=== PATIENT | female | born 1975 | race Caucasian/White ===

== ENCOUNTER 2017-02-25 09:37 | Emergency (ER) | payer BC ==
--- NOTE | 2017-02-25 09:54 | EDM.PDOC ---
ED HPI LOWER BACK PAIN/INJURY - General Chief Complaint: Back Pain or Injury Stated Complaint: BACK Time Seen by Provider: 02/25/17 09:40 Source of Information: Reports: Patient History Limitations: Reports: No limitations - History of Present Illness INITIAL COMMENTS - FREE TEXT/NARRATIVE: History of present illness: [] Patient was bending down at work and felt a sudden low back spasm. Patient has had spasms in the past with no specific injuries. He does not have any radiating pain, numbness, tingling or incontinence. Review of systems: As per history of present illness and below otherwise all systems reviewed and negative. Past medical history: As per history of present illness and as reviewed below otherwise noncontributory. Surgical history: As per history of present illness and as reviewed below otherwise noncontributory. Social history: No reported history of drug or alcohol abuse. Family history: As per history of present illness and as reviewed below otherwise noncontributory. Physical exam: General: Well developed, well nourished in NAD HEENT: Atraumatic, normocephalic, pupils reactive, negative for conjunctival pallor or scleral icterus, mucous membranes moist, throat clear, neck supple, nontender, trachea midline. Lungs: Clear to auscultation, breath sounds equal bilaterally, chest nontender. Heart: S1S2, regular, negative for clicks, rubs, or JVD. Abdomen: Soft, nondistended, nontender. Negative for masses or hepatosplenomegaly. Negative for costovertebral tenderness. Pelvis: Stable nontender. Genitourinary: Deferred. Rectal: Deferred. Extremities: Atraumatic, negative for cords or calf pain. Neurovascular unremarkable. Neuro: Awake, alert, oriented. Cranial nerves II through XII unremarkable. Cerebellum unremarkable. Motor and sensory unremarkable throughout. Exam nonfocal. Diagnostics: [] Therapeutics: [] Toradol IM Impression: [] Lumbar spasm Plan: [] Tramadol Flexeril for pain and spasm ice to back Definitive disposition and diagnosis as appropriate pending reevaluation and review of above. - Related Data Allergies/ADRs: Allergies Allergy/AdvReac Type Severity Reaction Status Date / Time No Known Allergies Allergy Verified 02/25/17 09:41 Home Meds: Home Meds Levothyroxine Sodium [Synthroid] 150 mcg PO DAILY 09/08/16 [History] Cyclobenzaprine [Flexeril] 10 mg PO BID PRN #12 tablet 02/25/17 [Rx] traMADol [Ultram] 50 mg PO Q6H PRN #12 tablet 02/25/17 [Rx] Past Medical History - Past Health History Medical/Surgical History: Denies Medical/Surgical History HEENT History: Reports: Hard of hearing, Impaired vision Other HEENT History: wears glasses, jennyfer hearing aids Cardiovascular History: Reports: Other (see below) Other Cardiovascular History: slight murmur Respiratory History: Reports: None Gastrointestinal History: Reports: None Genitourinary History: Reports: None 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 Musculoskeletal History: Reports: None Neurological History: Reports: None Psychiatric History: Reports: None Endocrine/Metabolic History: Reports: Hypothyroidism Hematologic History: Reports: None Immunologic History: Reports: None Oncologic (Cancer) History: Reports: None Dermatologic History: Reports: None - Past Surgical History Head Surgeries/Procedures: Reports: None HEENT Surgical History: Reports: Tonsillectomy Cardiovascular Surgical History: Reports: None GI Surgical History: Reports: Colonoscopy, EGD Female Surgical History: Reports: Hysterectomy Social & Family History - Family History Family Medical History: Noncontributory - Tobacco Use Smoking Status *Q: Never Smoker Second Hand Smoke Exposure: No - Caffeine Use Caffeine Use: Reports: Coffee, Energy drinks, Soda, Tea Caffeine Use Comment: 3-4x a week - Recreational Drug Use Recreational Drug Use: No - Living Situation & Occupation Living situation: Reports: , with family (Children) Occupation: employed (sales enablement manager.) ED ROS GENERAL - Review of Systems Review Of Systems: See Below (See history of present illness) ED EXAM,LOWER BACK PAIN/INJURY - Physical Exam Exam: See Below (See history of present illness) Course - Vital Signs Last Recorded V/S: Last Vital Signs Temp 36.4 C 02/25/17 09:42 Pulse 75 02/25/17 09:42 Resp 18 02/25/17 09:42 BP 140/81 02/25/17 09:42 Pulse Ox 100 02/25/17 09:42 - Orders/Labs/Meds Meds: Medications Discontinued Medications Generic Name Dose Route Start Last Admin Trade Name Freq PRN Reason Stop Dose Admin Ketorolac Tromethamine 60 mg 02/25/17 09:56 02/25/17 10:01 Toradol IM 02/25/17 09:57 60 mg ONETIME ONE Administration Departure - Departure Time of Disposition: 10:18 Disposition: Home, Self-Care 01 Condition: good Clinical Impression: Back muscle spasm Prescriptions: Cyclobenzaprine [Flexeril] 10 mg PO BID PRN #12 tablet PRN Reason: Spasms traMADol [Ultram] 50 mg PO Q6H PRN #12 tablet PRN Reason: Pain Referrals: Usman Wood MD [Primary Care Provider] - Forms: ED Department Discharge Additional Instructions: The following information is given to patients seen in the emergency department who are being discharged to home. This information is to outline your options for follow-up care. We provide all patients seen in our emergency department with a follow-up referral. The need for follow-up, as well as the timing and circumstances, are variable depending upon the specifics of your emergency department visit. If you don't have a primary care physician on staff, we will provide you with a referral. We always advise you to contact your personal physician following an emergency department visit to inform them of the circumstance of the visit and for follow-up with them and/or the need for any referrals to a consulting specialist. The emergency department will also refer you to a specialist when appropriate. This referral assures that you have the opportunity for follow-up care with a specialist. All of these measure are taken in an effort to provide you with optimal care, which includes your follow-up. Under all circumstances we always encourage you to contact your private physician who remains a resource for coordinating your care. When calling for follow-up care, please make the office aware that this follow-up is from your recent emergency room visit. If for any reason you are refused follow-up, please contact the [facility] Emergency Department at and asked to speak to the emergency department charge nurse. Tramadol Flexeril [facility] [address] [place] [id number]
[2017-02-25] MEDS ORDERED: Ketorolac 60 MG/2 ML SDV IM ONE (09:56)
[2017-02-25 10:29] VITALS: BP 119/75
== END 2017-02-25 10:29 | disposition home or self-care (01) ==
LOC: MW.ED 09:37
DX: M62.830 Muscle spasm of back (principal); E03.9 Hypothyroidism, unspecified; Z90.710 Acquired absence of both cervix and uterus; Z98.890 Other specified postprocedural states; Z79.899 Other long term (current) drug therapy
CPT/HCPCS: 96372; 99283; J1885

== ENCOUNTER 2020-08-06 09:35 | Emergency (ER) | payer OTHER ==
[2020-08-06 09:46] VITALS: BP 133/60; PULSE 77
[2020-08-06] MEDS ORDERED: Diazepam 2 MG Tab PO ONE (09:56)
[2020-08-06] MEDS ORDERED: Dexamethasone 4 MG Tab PO ONE (09:56)
--- NOTE | 2020-08-06 10:04 | EDM.PDOC ---
ED HPI GENERAL MEDICAL PROBLEM - General Chief Complaint: Back Pain or Injury Stated Complaint: BACK INJURY Time Seen by Provider: 08/06/20 09:46 - History of Present Illness INITIAL COMMENTS - FREE TEXT/NARRATIVE: History of present illness: Patient presents with low back pain that is bilateral lumbar radiating into her buttocks and thighs she states she hurt it yesterday while making a bed no heavy lifting no falls no trauma she has had prior episodes of back pain in the past usually this is relieved with a steroid injection into her back. She currently takes no medications other than Tylenol for pain she denies any trouble with urination no fever no chills movement makes it worse being still makes it better. Review of systems: As per history of present illness and below otherwise all systems reviewed and negative. Past medical history: As per history of present illness and as reviewed below otherwise noncontributory. Surgical history: As per history of present illness and as reviewed below otherwise nonco ntributory. Social history: No reported history of drug or alcohol abuse. Family history: As per history of present illness and as reviewed below otherwise noncontributory. Physical exam: HEENT: Atraumatic, normocephalic, pupils reactive, negative for conjunctival pallor or scleral icterus, mucous membranes moist, throat clear, neck supple, nontender, trachea midline. Lungs: Clear to auscultation, breath sounds equal bilaterally, chest nontender. Heart: S1S2, regular, negative for clicks, rubs, or JVD. Abdomen: Soft, nondistended, nontender. Negative for masses or hepatosplenomegaly. Negative for costovertebral tenderness. Pelvis: Stable nontender. Genitourinary: Deferred. Rectal: Deferred. Extremities: Atraumatic, negative for cords or calf pain. Neurovascular unremarkable. Neuro: Awake, alert, oriented. Cranial nerves II through XII unremarkable. Cerebellum unremarkable. Motor and sensory unremarkable throughout. Exam nonfocal. No saddle anesthesia great toe strength is 5 out of 5 bilaterally Back: There is no midline tenderness there is bilateral lumbar spasm in the paraspinal musculature. Diagnostics: [] Therapeutics: [] Impression: Back pain [] Plan: Patient will get a dose of Decadron and some Valium in the ED should be discharged home on gabapentin prednisone and Flexeril she is to follow-up with her primary care doctor soon as possible. [] Definitive disposition and diagnosis as appropriate pending reevaluation and review of above. lower back Pain Score (Numeric/FACES): 10 - Related Data Allergies Allergy/AdvReac Type Severity Reaction Status Date / Time No Known Allergies Allergy Verified 08/06/20 09:41 Home Meds: Home Meds Levothyroxine Sodium [Synthroid] 175 mcg PO DAILY 09/08/16 [History] Diclofenac Sodium [Voltaren] 1 applic TOP ASDIRECTED PRN 08/03/20 [History] Metoprolol Tartrate 50 mg PO DAILY 08/03/20 [History] Cyclobenzaprine [Flexeril] 10 mg PO TID #30 tab 08/06/20 [Rx] Gabapentin [Neurontin] 300 mg PO TID #90 cap 08/06/20 [Rx] predniSONE 60 mg PO WITHBREAKFAST 5 Days #15 tab 08/06/20 [Rx] Past Medical History - Past Health History Medical/Surgical History: Denies Medical/Surgical History HEENT History: Reports: Hard of Hearing, Impaired Vision Other HEENT History: wears glasses, jennyfer hearing aids Cardiovascular History: Reports: Hypertension, Other (See Below) Other Cardiovascular History: slight murmur Respiratory History: Reports: None Gastrointestinal History: Reports: None, Cholelithiasis Genitourinary History: Reports: None 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 Musculoskeletal History: Reports: Back Pain, Chronic, Neck Pain, Chronic Other Musculoskeletal History: states has chronic neck and back pain; states goes to chiropractor and also had a steroid injection at [facility] recently Neurological History: Reports: None Psychiatric History: Reports: None Endocrine/Metabolic History: Reports: Hypothyroidism, Obesity/BMI 30+ Hematologic History: Reports: None Immunologic History: Reports: None Oncologic (Cancer) History: Reports: None Dermatologic History: Reports: None - Infectious Disease History Infectious Disease History: Reports: Chicken Pox - Past Surgical History Head Surgeries/Procedures: Reports: None HEENT Surgical History: Reports: Tonsillectomy Cardiovascular Surgical History: Reports: None GI Surgical History: Reports: Colonoscopy, EGD Female Surgical History: Reports: Hysterectomy Other Female Surgeries/Procedures: states had a hysterectomy with bladder repair Social & Family History - Family History Family Medical History: Noncontributory - Tobacco Use Smoking Status *Q: Never Smoker - Caffeine Use Caffeine Use: Reports: Coffee Caffeine Use Comment: 3-4x a week - Recreational Drug Use Recreational Drug Use: No - Living Situation & Occupation Living situation: Reports: , with Family Occupation: Employed ED ROS GENERAL - Review of Systems Review Of Systems: See Below ED EXAM, GENERAL - Physical Exam Exam: See Below Course - Vital Signs Last Recorded V/S: Last Vital Signs Temp 36.3 C 08/06/20 09:41 Pulse 77 08/06/20 09:41 Resp 24 H 08/06/20 09:41 BP 133/60 08/06/20 09:41 Pulse Ox 100 08/06/20 09:41 - Orders/Labs/Meds Meds: Medications Discontinued Medications Generic Name Dose Route Start Last Admin Trade Name Mariia PRN Reason Stop Dose Admin Dexamethasone 8 mg 08/06/20 09:56 Dexamethasone PO 08/06/20 09:57 ONETIME ONE Diazepam 5 mg 08/06/20 09:56 Valium PO 08/06/20 09:57 ONETIME ONE Departure - Departure Time of Disposition: 10:03 Disposition: Home, Self-Care 01 Condition: Good Clinical Impression: Back pain - Discharge Information *PRESCRIPTION DRUG MONITORING PROGRAM REVIEWED*: Not Applicable *COPY OF PRESCRIPTION DRUG MONITORING REPORT IN PATIENT DANY: Not Applicable Prescriptions: Cyclobenzaprine [Flexeril] 10 mg PO TID #30 tab Gabapentin [Neurontin] 300 mg PO TID #90 cap predniSONE 60 mg PO WITHBREAKFAST 5 Days #15 tab Instructions: Acute Back Pain, Adult Referrals: Usman Wood MD [Primary Care Provider] - Additional Instructions: The following information is given to patients seen in the emergency department who are being discharged to home. This information is to outline your options for follow-up care. We provide all patients seen in our emergency department with a follow-up referral. The need for follow-up, as well as the timing and circumstances, are variable depending upon the specifics of your emergency department visit. If you don't have a primary care physician on staff, we will provide you with a referral. We always advise you to contact your personal physician following an emergency department visit to inform them of the circumstance of the visit and for follow-up with them and/or the need for any referrals to a consulting specialist. The emergency department will also refer you to a specialist when appropriate. This referral assures that you have the opportunity for follow-up care with a specialist. All of these measure are taken in an effort to provide you with optimal care, which includes your follow-up. Under all circumstances we always encourage you to contact your private physician who remains a resource for coordinating your care. When calling for follow-up care, please make the office aware that this follow-up is from your recent emergency room visit. If for any reason you are refused follow-up, please contact the [facility] Emergency Department at and asked to speak to the emergency department charge nurse. Sepsis Event Note (ED) - Evaluation Sepsis Screening Result: No Definite Risk - Focused Exam Vital Signs: Vital Signs Temp Pulse Resp BP Pulse Ox 08/06/20 09:41 36.3 C 77 24 H 133/60 100
== END 2020-08-06 10:50 | disposition home or self-care (01) ==
LOC: MW.ED 09:35
DX: M54.5 Low back pain (principal); I10 Essential (primary) hypertension; E03.9 Hypothyroidism, unspecified; E66.9 Obesity, unspecified; Z68.34 Body mass index [BMI] 34.0-34.9, adult; Z79.899 Other long term (current) drug therapy
CPT/HCPCS: 99283; A9270; J8540; 99282

== ENCOUNTER 2020-08-09 09:40 | Day surgery (SDC) | payer OTHER ==
[~2020-08-09 09:40] MED LIST: Lactated Ringers 1,000 ML IV SCH; Sodium Chloride 0.9% 10 ML SDV IV PRN; Sodium Chloride 0.9% 10 ML Syringe FLUSH PRN; Sodium Chloride 0.9% 2.5 ML Syringe FLUSH PRN; ceFAZolin 2 GM in Premix Bag 1 BAG IV ONE
--- NOTE | 2020-08-09 10:24 | PCM.PREANE ---
Preanesthetic Assessment - Anesthesia/Transfusion/Family Hx Anesthesia History: Prior Anesthesia Without Reaction Family History of Anesthesia Reaction: No Transfusion History: No Prior Transfusion(s) - Review of Systems General: No Symptoms Pulmonary: No Symptoms Cardiovascular: No Symptoms Gastrointestinal: No Symptoms Neurological: No Symptoms Other: Reports: None - Physical Assessment NPO Status Date: 08/08/20 Height: 5 ft 5 in Weight: 95.254 kg ASA Class: 2 Mental Status: Alert & Oriented x3 Airway Class: Mallampati = 2 Dentition: Reports: Normal Dentition ROM/Head Extension: Full Lungs: Clear to Auscultation, Normal Respiratory Effort Cardiovascular: Regular Rate, Regular Rhythm - Allergies Allergies/Adverse Reactions: Allergies Allergy/AdvReac Type Severity Reaction Status Date / Time No Known Allergies Allergy Verified 08/06/20 09:41 - Blood Blood Available: No - Anesthesia Plan Pre-Op Medication Ordered: None - Acknowledgements Anesthesia Type Planned: General Anesthesia Pt an Appropriate Candidate for the Planned Anesthesia: Yes Alternatives and Risks of Anesthesia Discussed w Pt/Guardian: Yes Pt/Guardian Understands and Agrees with Anesthesia Plan: Yes Additional Comments: pmh: on metopralol for htn and anxiety, gerd, thyroid replacement PLAN: GET PreAnesthesia Questionnaire - Past Health History Medical/Surgical History: Denies Medical/Surgical History HEENT History: Reports: Hard of Hearing, Impaired Vision Other HEENT History: wears glasses, jennyfer hearing aids Cardiovascular History: Reports: Hypertension, Other (See Below) Other Cardiovascular History: slight murmur Respiratory History: Reports: None Gastrointestinal History: Reports: None, Cholelithiasis Genitourinary History: Reports: None 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 Musculoskeletal History: Reports: Back Pain, Chronic, Neck Pain, Chronic Other Musculoskeletal History: states has chronic neck and back pain; states goes to chiropractor and also had a steroid injection at [facility] recently Neurological History: Reports: None Psychiatric History: Reports: None Endocrine/Metabolic History: Reports: Hypothyroidism, Obesity/BMI 30+ Hematologic History: Reports: None Immunologic History: Reports: None Oncologic (Cancer) History: Reports: None Dermatologic History: Reports: None - Infectious Disease History Infectious Disease History: Reports: Chicken Pox - Past Surgical History Head Surgeries/Procedures: Reports: None HEENT Surgical History: Reports: Tonsillectomy Cardiovascular Surgical History: Reports: None GI Surgical History: Reports: Colonoscopy, EGD Female Surgical History: Reports: Hysterectomy Other Female Surgeries/Procedures: states had a hysterectomy with bladder repair - SUBSTANCE USE Smoking Status *Q: Never Smoker - HOME MEDS Home Medications: Home Meds Levothyroxine Sodium [Synthroid] 175 mcg PO DAILY 09/08/16 [History] Diclofenac Sodium [Voltaren] 1 applic TOP ASDIRECTED PRN 08/03/20 [History] Metoprolol Tartrate 50 mg PO DAILY 08/03/20 [History] Cyclobenzaprine [Flexeril] 10 mg PO TID #30 tab 08/06/20 [Rx] Gabapentin [Neurontin] 300 mg PO TID #90 cap 08/06/20 [Rx] predniSONE 60 mg PO WITHBREAKFAST 5 Days #15 tab 08/06/20 [Rx] - CURRENT (IN HOUSE) MEDS Current Meds: Current Medications Lactated Ringer's (Ringers, Lactated) 1,000 mls @ 125 mls/hr IV ASDIRECTED MERI Sodium Chloride (Saline Flush) 2.5 ml FLUSH ASDIRECTED PRN PRN Reason: Keep Vein Open Sodium Chloride (Normal Saline) 10 ml IV ASDIRECTED PRN PRN Reason: IV Use Sodium Chloride (Saline Flush) 10 ml FLUSH ASDIRECTED PRN PRN Reason: Keep Vein Open Discontinued Medications Cefazolin Sodium/Dextrose 2 gm (/ Premix) 50 mls @ 100 mls/hr IV ONETIME ONE Stop: 08/06/20 09:29
[2020-08-09] MEDS ORDERED: fentaNYL 100 MCG/2 ML SDV ONE ×2 (11:00→12:05)
[2020-08-09] MEDS ORDERED: Propofol 200 MG/20 ML SDV ONE ×2 (11:00→11:37)
[2020-08-09] MEDS ORDERED: Midazolam 1 MG/ML 2 ML SDV ONE ×2 (11:00→11:37)
[2020-08-09] MEDS ORDERED: Ondansetron 4 MG/2 ML SDV ONE ×2 (11:00→11:39)
[2020-08-09] MEDS ORDERED: Rocuronium Bromide 50 MG/5 ML Syringe ONE ×2 (11:01→11:39)
[2020-08-09] MEDS ORDERED: Glycopyrrolate 0.2 MG/ML SDV ONE ×2 (11:01→11:39)
[2020-08-09] MEDS ORDERED: Dexamethasone 4 MG/ML 5 ML MDV ONE (11:01)
[2020-08-09] MEDS ORDERED: HYDROmorphone 2 MG/ML Syringe ONE (11:01)
[2020-08-09] MEDS ORDERED: Ketorolac 30 MG/ML SDV ONE ×2 (11:01→11:39)
[2020-08-09] MEDS ORDERED: fentaNYL 250 MCG/5 ML SDV ONE ×2 (11:37→13:15)
[2020-08-09] MEDS ORDERED: Lidocaine 2% 5 ML SDV ONE (11:39)
[2020-08-09] MEDS ORDERED: Bupivacaine 0.5% 30 ML SDV ONE (11:50)
[2020-08-09] MEDS ORDERED: ceFAZolin 1 GM Vial ONE (12:40)
[2020-08-09] MEDS ORDERED: Acetaminophen 1,000 MG in Premix Bag 1 BAG IV PRN (13:17)
[2020-08-09] MEDS ORDERED: Octyl 2-Cyanoacrylate 1 Tube ONE (13:38)
--- NOTE | 2020-08-09 14:01 | PCM.OPNOTE ---
- General Post-Op/Procedure Note Date of Surgery/Procedure: 08/09/20 Operative Procedure(s): Laparoscopic cholecystectomy Findings: Normal appearing gallbladder Pre Op Diagnosis: Symptomatic cholelithiasis Post-Op Diagnosis: same Anesthesia Technique: General ET Tube Primary Surgeon: Nora Swartz Fluid Replacement, Intraop: 500 Output, Urine Amount: 100 EBL in mLs: 5 Condition: Good
[2020-08-09] MEDS: fentaNYL 100 MCG/2 ML SDV IVPUSH PRN ×2 (14:28→14:38)
--- NOTE | 2020-08-09 14:49 | PCM.POSTAN ---
POST ANESTHESIA ASSESSMENT - MENTAL STATUS Mental Status: Alert, Oriented - VITAL SIGNS Vital Signs: Last Vital Signs Temp 36.2 C 08/09/20 14:01 Pulse 54 L 08/09/20 14:42 Resp 12 08/09/20 14:42 BP 140/79 08/09/20 14:42 Pulse Ox 96 08/09/20 14:42 - RESPIRATORY Respiratory Status: Respiratory Rate WNL, Airway Patent, O2 Saturation Stable - CARDIOVASCULAR CV Status: Pulse Rate WNL, Blood Pressure Stable - GASTROINTESTINAL GI Status: No Symptoms - POST OP HYDRATION Hydration Status: Adequate & Stable
[2020-08-09] MEDS ORDERED: Acetaminophen/oxyCODONE 325-5 MG Tab PO PRN (15:08)
[2020-08-09] MEDS ORDERED: Haloperidol Lactate 5 MG/ML SDV IM ONE (15:30)
[2020-08-09 17:24] VITALS: BP 132/72; PULSE 56
--- NOTE | 2020-08-09 18:08 | PCM48HPAN ---
Post Anesthesia Note - EVALUATION WITHIN 48HRS OF ANESTHETIC Vital Signs in Normal Range: Yes Patient Participated in Evaluation: Yes Respiratory Function Stable: Yes Airway Patent: Yes Cardiovascular Function Stable: Yes Hydration Status Stable: Yes Pain Control Satisfactory: Yes (02/23) Nausea and Vomiting Control Satisfactory: Yes Mental Status Recovered: Yes Vital Signs: Last Vital Signs Temp 36.1 C 08/09/20 14:57 Pulse 56 L 08/09/20 16:45 Resp 16 08/09/20 16:45 BP 132/72 08/09/20 16:45 Pulse Ox 96 08/09/20 16:45
--- NOTE | 2020-08-10 14:15 | OR ---
SURGEON: NORA GARCIA MD DATE OF PROCEDURE: 08/09/2020 PREOPERATIVE DIAGNOSIS: Symptomatic cholelithiasis. POSTOPERATIVE DIAGNOSIS: Symptomatic cholelithiasis. PROCEDURE PERFORMED: Laparoscopic cholecystectomy. PRIMARY SURGEON: Nora Garcia MD CYLINDER BLOCK MECHANIC: vet assistant: Abdelrahman Hill MD ANESTHESIA: General endotracheal anesthesia. FLUIDS: 500 mL of crystalloid. ESTIMATED BLOOD LOSS: 5 mL. URINE OUTPUT: 100 mL. FINDINGS: Normal-appearing gallbladder. COMPLICATIONS: None. INDICATIONS: The patient is a 44-year-old female who presented with symptomatic cholelithiasis. I explained the need for a cholecystectomy. I explained the laparoscopic approach and stated that should I be unable to perform it safely I would convert to open. The patient and I discussed the expected perioperative course as well as the risks including bleeding, infection, or damage to surrounding structures. She verbalized understanding and wishes to proceed. PROCEDURE IN DETAIL: The patient was brought into the OR and placed on the OR table in supine position. A time-out was completed verifying the patient's name, age, date of , allergies, and procedure to be performed. General endotracheal anesthesia was induced. The left arm was tucked to the patient's side and a Watts catheter placed. The abdomen was prepped and draped in usual standard fashion. I anesthetized the infraumbilical fold with 0.5% Marcaine plain. An incision was made using an 11 blade along the infraumbilical fold. Cautery was used to dissect down through the layers of the subcutaneous fat. The fascia was grasped with Marcus's and elevated. It was incised sharply with the scissors. Entry into the abdomen was palpated digitally. A 12 mm Eldon trocar was placed in the abdomen and stay sutures were placed on either side of the fascia using 0 Vicryl sutures. The abdomen was insufflated. A 5 mm 30-degree scope was inserted. I inspected the area underneath my initial trocar placement. No damage to surrounding structures was noted. The patient was placed into reverse Trendelenburg position and airplaned slightly to the left. 5 mm trocars were placed under direct visualization in the following locations; one in the epigastric area, one in the right flank, and one 2 fingerbreadths below the right subcostal margin in the midclavicular line. The dome of the gallbladder was grasped and elevated cranially. The gallbladder overall appeared normal. I began dissection along the infundibulum using hook cautery and blunt dissection with a [place] and suction device. I cleared away the cystic duct and artery as well as the proximal one-third of the cystic plate. Once my critical view was achieved, a photograph was taken. I then doubly clipped and ligated my cystic duct and artery. The remaining attachments of the gallbladder to the gallbladder fossa were taken down using hook cautery. The gallbladder was placed in an Endo Catch bag and removed through the infraumbilical port site. I inspected my operative field. There was no evidence of bile leak or any bleeding. I irrigated the abdomen with normal saline and suctioned this out. My 5 mm trocars were removed under direct visualization and the abdomen was desufflated. The 12 mm trocar was removed as well. The fascia at the infraumbilical port site was closed with interrupted 0 Vicryl sutures. The subcutaneous fat layer was closed with a single interrupted 3-0 Vicryl. The skin was closed with a running 4-0 Monocryl stitch. My 5 mm trocar sites were closed with interrupted 4-0 Monocryl sutures. All counts were complete and correct at the end of the case. The patient was extubated and taken to the PACU in stable condition. CADEN MORRISSEY /[id number]
== END 2020-08-09 17:15 | disposition home or self-care (01) ==
LOC: MW.SDS 09:40
PROVIDERS: ATTEND Surgery
DX: K80.10 Calculus of gallbladder with chronic cholecystitis without obstruction (principal); I10 Essential (primary) hypertension; E03.9 Hypothyroidism, unspecified; E66.9 Obesity, unspecified; Z79.890 Hormone replacement therapy; Z79.899 Other long term (current) drug therapy; Z68.34 Body mass index [BMI] 34.0-34.9, adult
CPT/HCPCS: 47562; A9270; J0131; J0690; J1630; J1885; J2001; J2250; J2405; J2704; J3010; J3490; J7120; 00790; 88304; J1100; J1170

== ENCOUNTER 2021-10-24 11:21 | Emergency (ER) | payer BC, OTHER ==
[2021-10-24] MEDS ORDERED: Metoclopramide 10 MG/2 ML SDV IVPUSH ONE (12:26)
--- NOTE | 2021-10-24 12:32 | EDM.PDOC ---
ED HPI GENERAL MEDICAL PROBLEM - General Chief Complaint: Headache Stated Complaint: HIGH BLOOD PRESSURE,MIGRANE Time Seen by Provider: 10/24/21 11:22 Source of Information: Reports: Patient History Limitations: Reports: No Limitations - History of Present Illness INITIAL COMMENTS - FREE TEXT/NARRATIVE: Patient is a 45-year-old female with a 3 of high blood pressure presents today for headache. States that it has been present as last night. She occasionally has headaches but she came in today because earlier her blood pressure was elevated a minute concern. She denies any vision changes no chest pain no numbness weakness in her extremities has no other medical complaints just a headache. She did not take any medicine for the headache home. Headaches not made better or worse with anything nonradiating and feels like a squeezing feeling. headache Pain Score (Numeric/FACES): 8 - Related Data Allergies Allergy/AdvReac Type Severity Reaction Status Date / Time No Known Allergies Allergy Verified 10/24/21 12:08 Home Meds: Home Meds Levothyroxine Sodium [Synthroid] 175 mcg PO DAILY 09/08/16 [History] Metoprolol Tartrate 50 mg PO DAILY 08/03/20 [History] Cyclobenzaprine [Flexeril] 10 mg PO TID #30 tab 08/06/20 [Rx] traMADol [Ultram] 50 mg PO Q6H PRN 10/24/21 [History] Past Medical History - Past Health History Medical/Surgical History: Denies Medical/Surgical History HEENT History: Reports: Hard of Hearing, Impaired Vision Other HEENT History: wears glasses, jennyfer hearing aids Cardiovascular History: Reports: Heart Murmur, Hypertension Other Cardiovascular History: slight murmur Respiratory History: Reports: None Gastrointestinal History: Reports: Cholelithiasis Genitourinary History: Reports: None PRESSER ALL AROUND History: Reports: Other PRESSER ALL AROUND History: 4x Musculoskeletal History: Reports: Back Pain, Chronic, Neck Pain, Chronic Other Musculoskeletal History: states has chronic neck and back pain; states goes to chiropractor and also had a steroid injection at [facility] recently Neurological History: Reports: None Psychiatric History: Reports: None Endocrine/Metabolic History: Reports: Hypothyroidism, Obesity/BMI 30+ Hematologic History: Reports: None Immunologic History: Reports: None Oncologic (Cancer) History: Reports: None Dermatologic History: Reports: None - Infectious Disease History Infectious Disease History: Reports: Chicken Pox - Past Surgical History Head Surgeries/Procedures: Reports: None HEENT Surgical History: Reports: Tonsillectomy Cardiovascular Surgical History: Reports: None GI Surgical History: Reports: Cholecystectomy, Colonoscopy, EGD Female Surgical History: Reports: Hysterectomy Other Female Surgeries/Procedures: states had a hysterectomy with bladder repair Musculoskeletal Surgical History: Reports: None Social & Family History - Family History Family Medical History: No Pertinent Family History - Tobacco Use Tobacco Use Status *Q: Never Tobacco User - Caffeine Use Caffeine Use: Reports: Coffee Caffeine Use Comment: 3-4x a week - Recreational Drug Use Recreational Drug Use: No - Living Situation & Occupation Living situation: Reports: , with Family Occupation: Employed ED ROS GENERAL - Review of Systems Review Of Systems: See Below Constitutional: Reports: No Symptoms HEENT: Reports: No Symptoms Respiratory: Reports: No Symptoms Cardiovascular: Reports: No Symptoms Endocrine: Reports: No Symptoms GI/Abdominal: Reports: No Symptoms : Reports: No Symptoms Musculoskeletal: Reports: No Symptoms Skin: Reports: No Symptoms Neurological: Reports: Headache Psychiatric: Reports: No Symptoms Hematologic/Lymphatic: Reports: No Symptoms Immunologic: Reports: No Symptoms - Physical Exam Exam: See Below Exam Limited By: No Limitations General Appearance: Alert, WD/WN, No Apparent Distress Ears: Normal External Exam, Normal TMs Nose: Normal Inspection Head Exam: Atraumatic, Normocephalic Respiratory/Chest: No Respiratory Distress, Lungs Clear, Normal Breath Sounds Cardiovascular: Normal Peripheral Pulses, Regular Rate, Rhythm GI/Abdominal: Normal Bowel Sounds, Soft, Non-Tender Neuro Exam (Abbreviated): Alert, Oriented, CN II-XII Intact, Normal Cognition, Normal Gait, No Motor/Sensory Deficits Extremities: Normal Inspection, Normal Range of Motion Course - Vital Signs Last Recorded V/S: Last Vital Signs Temp 96.6 F L 10/24/21 12:09 Pulse 72 10/24/21 12:09 Resp 16 10/24/21 12:09 BP 147/98 H 10/24/21 12:09 Pulse Ox 96 10/24/21 12:09 - Orders/Labs/Meds Meds: Medications Discontinued Medications Generic Name Dose Route Start Last Admin Trade Name Freq PRN Reason Stop Dose Admin Ketorolac Tromethamine 60 mg 10/24/21 12:39 10/24/21 12:57 Ketorolac 60 Mg/2 Ml Sdv IM 10/24/21 12:40 60 mg ONETIME ONE Administration Metoclopramide HCl 10 mg 10/24/21 12:26 10/24/21 12:39 Metoclopramide 10 Mg/2 Ml Sdv IVPUSH 10/24/21 12:27 Not Given ONETIME ONE - Re-Assessments/Exams Free Text/Narrative Re-Assessment/Exam: 10/24/21 13:21 Improved blood pressure meds stable to be discharged home Departure - Departure Time of Disposition: 13:21 Disposition: Home, Self-Care 01 Condition: Good Clinical Impression: Headache - Discharge Information *PRESCRIPTION DRUG MONITORING PROGRAM REVIEWED*: Not Applicable *COPY OF PRESCRIPTION DRUG MONITORING REPORT IN PATIENT DANY: Not Applicable Instructions: General Headache Without Cause, [id number] Referrals: Usman Wood MD [Primary Care Provider] - Forms: ED Department Discharge Additional Instructions: You were seen today for headache your headache did not have any neurological symptoms with this. We recommend you try Tylenol Motrin at home for headache if you continue have any headaches or neurological symptoms please return to the ED immediately otherwise follow-up primary care physician. The following information is given to patients seen in the emergency department who are being discharged to home. This information is to outline your options for follow-up care. We provide all patients seen in our emergency department with a follow-up referral. The need for follow-up, as well as the timing and circumstances, are variable depending upon the specifics of your emergency department visit. If you don't have a primary care physician on staff, we will provide you with a referral. We always advise you to contact your personal physician following an emergency department visit to inform them of the circumstance of the visit and for follow-up with them and/or the need for any referrals to a consulting specialist. The emergency department will also refer you to a specialist when appropriate. This referral assures that you have the opportunity for follow-up care with a specialist. All of these measure are taken in an effort to provide you with optimal care, which includes your follow-up. Under all circumstances we always encourage you to contact your private physician who remains a resource for coordinating your care. When calling for follow-up care, please make the office aware that this follow-up is from your recent emergency room visit. If for any reason you are refused follow-up, please contact the [facility] Emergency Department at and asked to speak to the emergency department charge nurse. Please follow up with your primary care physician. If you do not have a primary care physician, see below: [facility] [address] [place] [id number] [facility] [address] [place] [id number] Sepsis Event Note (ED) - Evaluation Sepsis Screening Result: No Definite Risk - Focused Exam Vital Signs: Vital Signs Temp Pulse Resp BP Pulse Ox 10/24/21 12:09 96.6 F L 72 16 147/98 H 96 - Assessment/Plan Plan: Patient is a 45-year-old female with a history of high blood pressure who presents today for headache. Patient has no neurological complaints. We will treat patient's headache and reassess. Patient has no other complaints on exam.
[2021-10-24] MEDS ORDERED: Ketorolac 60 MG/2 ML SDV IM ONE (12:39)
[2021-10-24 13:22] VITALS: BP 142/84; PULSE 59
== END 2021-10-24 13:30 | disposition home or self-care (01) ==
LOC: MW.ED 11:21
DX: R51.9 Headache, unspecified (principal); I10 Essential (primary) hypertension; E03.9 Hypothyroidism, unspecified; E66.9 Obesity, unspecified; Z68.34 Body mass index [BMI] 34.0-34.9, adult; Z79.899 Other long term (current) drug therapy
CPT/HCPCS: 96372; 99283; J1885

== ENCOUNTER 2023-06-21 13:06 | Emergency (ER) | payer BC ==
[2023-06-21] MEDS ORDERED: Cyclobenzaprine 10 MG Tab PO STA (13:45)
[2023-06-21] MEDS ORDERED: methylPREDNISolone Sodium Succinate 125 MG/2 ML SDV IM ONE (13:45)
[2023-06-21] MEDS ORDERED: Lidocaine 4% 1 each Patch TOP STA (13:46)
[2023-06-21 14:03] LABS: BILIRUBIN,URINE NEGATIVE (NEGATIVE); COLOR,URINE YELLOW; GLUCOSE,URINE NEGATIVE (NEGATIVE); KETONES,URINE NEGATIVE (NEGATIVE); LEUKOCYTE ESTERASE,URINE SMALL (NEGATIVE); NITRITE,URINE NEGATIVE (NEGATIVE); OCCULT BLOOD,URINE TRACE-INTACT (NEGATIVE); PH,URINE 6.5 (5.0-8.0); PROTEIN,URINE NEGATIVE (NEGATIVE)
[2023-06-21 14:06] LABS: APPEARANCE,URINE HAZY
[2023-06-21 14:15] LABS: BACTERIA,URINE FEW (NEGATIVE); EPITHELIAL CELLS,URINE MANY (NONE-FEW)
[2023-06-21 14:36] VITALS: BP 127/70; PULSE 66
== END 2023-06-21 14:36 | disposition home or self-care (01) ==
LOC: MW.ED 13:06
DX: S29.012A Strain of muscle and tendon of back wall of thorax, initial encounter (principal); N30.00 Acute cystitis without hematuria; X50.1XXA Overexertion from prolonged static or awkward postures, initial encounter
CPT/HCPCS: 81001; 87086; 96372; 99283; A9270; J2930

== ENCOUNTER 2025-02-20 15:01 | Emergency (ER) | payer BC ==
[2025-02-20 15:43] LABS: BASOPHILS ABSOLUTE AUTO 0.08 K/uL (0.00-0.20); EOSINOPHILS ABSOLUTE AUTO 0.46 K/uL (0.00-0.45); HEMATOCRIT 38.7 % (37.0-47.0); HEMOGLOBIN 12.9 g/dL (12.0-16.0); IMMATURE GRAN ABSOLUTE AUTO 0.01 K/uL (0.00-0.05); IMMATURE GRAN PERCENT AUTO 0.1 % (0.0-0.4); LYMPHOCYTES ABSOLUTE AUTO 2.23 K/uL (1.00-4.80); MEAN CORPUSCULAR HEMOGLOBIN 29.7 pg (28.0-32.0); MEAN CORPUSCULAR HGB CONC 33.3 g/dL (32.0-36.0); MEAN CORPUSCULAR VOLUME 89.2 fL (83.0-99.0); MEAN PLATELET VOLUME 10.4 fL (9.4-12.3); MONOCYTES ABSOLUTE AUTO 0.49 K/uL (0.00-0.80); MONOCYTES PERCENT AUTO 6.4 % (0.0-8.0); NEUTROPHILS ABSOLUTE AUTO 4.43 K/uL (1.80-7.70); NEUTROPHILS PERCENT AUTO 57.5 % (41.0-71.0); PLATELET COUNT,PLT 199 K/uL (150-400); RED BLOOD CELL COUNT 4.34 M/uL (4.10-5.30)
[2025-02-20 16:12] LABS: A/G RATIO 1.2 (0.9-1.6); ALANINE AMINOTRANSFERASE,ALT 15 IU/L (14-63); ALBUMIN 3.7 g/dL (3.4-5.0); ALKALINE PHOSPHATASE 72 U/L (46-116); ASPARTATE AMNIOTRANSFERASE,AST 10 IU/L (15-37); BILIRUBIN TOTAL 1.2 mg/dL (0.2-1.0); BLOOD UREA NITROGEN,BUN 21 mg/dL (7.0-18.0); CALCIUM 8.7 mg/dL (8.5-10.1); CARBON DIOXIDE,CO2 30.3 mmol/L (21.0-32.0); CHLORIDE,CL 106 mmol/L (98-107); CREATININE 1.1 mg/dL (0.6-1.0); GLUCOSE RANDOM 100 mg/dL (74-106); POTASSIUM,K 3.5 mmol/L (3.5-5.1); PROTEIN TOTAL,TP 6.8 g/dL (6.4-8.2); SODIUM,NA 146 mmol/L (136-145); TSH ULTRASENSITIVE 0.32 uIU/mL (0.36-3.74)
[2025-02-20 16:16] LABS: ESTIMATED GFR 61 mL/min (>60)
[2025-02-20 19:16] VITALS: BP 136/47; PULSE 63
== END 2025-02-20 19:15 | disposition home or self-care (01) ==
LOC: MW.ED 15:01
DX: R07.89 Other chest pain (principal); I10 Essential (primary) hypertension; E03.9 Hypothyroidism, unspecified; Z79.890 Hormone replacement therapy; Z79.899 Other long term (current) drug therapy
CPT/HCPCS: 36415; 71045; 71045-26; 80053; 83735; 84443; 84484; 85025; 93005; 99283; 99285